=== PATIENT | male | born 1935 | race Caucasian/White ===

== ENCOUNTER 2016-10-07 01:56 | Emergency (ER) | payer MEDICARE, OTHER ==
[~2016-10-07 01:56] MED LIST: INHALER INH; MELOXICAM15 MG PO; MELOXICAM7.5 MG PO; NORCO 5/325 TAB1 TAB PO; PREVACID15 MG; PRILOSEC OTC20 MG PO; SAW PALMETTO PO; SINGULAIR10 MG
[2016-10-07] MEDS ORDERED: BYSTOLIC5 M1 PO (03:11)
[2016-10-07] MEDS ORDERED: LIPITOR80 M1 PO (03:12)
[2016-10-07] MEDS ORDERED: ASPIRIN81 M1 PO (03:12)
[2016-10-07] MEDS ORDERED: LISINOPRIL5 M1 (03:12)
[2016-10-07] MEDS ORDERED: IRON18 M1 (03:12)
[2016-10-07 03:54] LABS: BASO % 0.4 % (0-2); EOS % 2.7 % (0-7); EOSINOPHIL ABSOLUTE COUNT 0.2 tho/cmm (0.0-0.7); HCT-HEMATOCRIT 41.4 % (36.0-53.5); HGB-HEMOGLOBIN 13.7 gm/dl (13.5-17.0); IMMATURE GRANULOCYTES ABSOLUTE 0.03 tho/cmm (0-0.03); IMMATURE GRANULOCYTES PERCENT 0.4 % (0-0.3); LYMPH % 12.9 % (20-45); LYMPH ABSOLUTE COUNT 1.1 tho/cmm (0.8-4.5); MCH (MEAN CORPUSCULAR HGB) 31.6 pg (28.0-32.0); MCHC MEAN CORPUSCULAR HGB CONC 33.1 % (32.0-36.0); MCV (MEAN CELL VOLUME) 95.4 fl (82.0-96.0); MEAN PLATELET VOLUME 10.8 cmc (9.4-12.4); MONO % 7.4 % (0-12); MONOCYTE ABSOLUTE COUNT 0.6 tho/cmm (0.0-1.2); NEUTROPHIL ABSOLUTE COUNT 6.3 tho/cmm (1.6-8.0); NEUTROPHIL-AUTOMATED 6.3 tho/cmm (1.6-8.0); NEUTROPHILS % 76.2 % (40-80); PLATELET COUNT 155 tho/cmm (150-450); RED BLOOD COUNT 4.34 mil/cmm (4.40-5.70); WHITE BLOOD COUNT 8.3 tho/cmm (4.0-10.0)
[2016-10-07 04:05] LABS: ALB/GLOB RATIO 1.2 (0.8-2.0); ALBUMIN 3.6 g/dl (3.5-5.0); ALKALINE PHOSPHATASE 138 U/L (33-138); ALT/SGPT 44 U/L (12-78); ANION GAP 9 mmol/L (0-20); AST/SGOT 34 U/L (10-40); BILIRUBIN,TOTAL 0.6 mg/dl (0.0-1.5); BLOOD UREA NITROGEN 24 mg/dl (6-24); CALCIUM 8.7 mg/dl (8.5-10.5); CARBON DIOXIDE-VENOUS 29 mmol/L (22-32); CHLORIDE 108 mmol/l (96-110); CREATININE 1.25 mg/dl (0.60-1.30); GLUCOSE 170 mg/dL (70-110); POTASSIUM 3.9 mmol/L (3.7-5.1); SODIUM 142 mmol/L (135-145); eGFR VALUE FOR BLACK 63 mL/Min
[2016-10-07 04:53] LABS: URINE BILIRUBIN NEGATIVE (NEG); URINE BLOOD MODERATE (NEG); URINE GLUCOSE (UA) NEGATIVE (NEG); URINE KETONE NEGATIVE (NEG); URINE LEUKOCYTE ESTERASE NEGATIVE (NEG); URINE NITRITE NEGATIVE (NEG); URINE PROTEIN NEGATIVE (NEG); URINE SPECIFIC GRAVITY 1.025 (1.003-1.030)
[2016-10-07 04:55] LABS: URINE APPEARANCE CLEAR; URINE COLOR YELLOW
[2016-10-07 05:06] LABS: URINE EPITHELIAL CELLS RARE /[HPF] (0-10); URINE WBC 0 /[HPF] (0-5)
[2016-10-07] MEDS ORDERED: IBUPROFEN800 M1 PO (06:09)
[2016-10-07] MEDS ORDERED: NORCO 5/3251 TAB PO (06:09)
== END 2016-10-07 06:22 ==
LOC: EDMED 01:56
PROVIDERS: Emergency Medicine
DX: N13.2 Hydronephrosis with renal and ureteral calculous obstruction (principal); Z95.1 Presence of aortocoronary bypass graft; Z98.890 Other specified postprocedural states
CPT/HCPCS: J1885; J2270; J2405; J7030